=== PATIENT | female | born 1995 | race Caucasian/White ===

== ENCOUNTER 2017-03-31 05:49 | Emergency (ER) | payer BC ==
--- NOTE | 2017-03-31 19:08 | ER ---
ADMIT: 03/31/2017 RM/LOC: ER [facility] MR#: [id number] [id number] [place], [place] [id number] [address] [place], [place] [id number] Emergency Room Report SEX: F AGE: 21 : 1995 DATE: 03/31/2017 HISTORY OF PRESENT ILLNESS: The patient is a 21-year-old female, came to the ER with chief complaint of left posterior flank pain for the last 3 days, pain is sharp. The patient also complains of nausea and nonbloody, nonbilious vomiting multiple times because of the pain. The patient states she has a long history of kidney stone and multiple lithotripsy. PHYSICAL EXAMINATION: GENERAL: In the ER, the patient was in moderate to severe distress. VITAL SIGNS: Afebrile. HEAD and NECK: Noncontributory. CHEST: Clear bilaterally. HEART: Normal heart sounds. ABDOMEN: The patient had no CVA tenderness and no tenderness or rebound or guarding or rigidity of the abdomen. The patient had no McBurney tenderness too. The rest of the physical exam is noncontributory. EMERGENCY ROOM COURSE: The patient has sodium of 141, with potassium of 3.8, and creatinine of 1.1, WBC was 11. Pain was controlled. The patient received Zofran also for nausea and vomiting, and IV fluids. The patient states she feels way better. CT scan of the abdomen and pelvis was suggestive of multiple kidney stones, which were all small, less than 3 mm, in the parenchyma of bilateral kidneys, more on the left side and one 4 to 5 mm kidney stone on the UVJ, which is not obstructive per my reading, and also I did not see any hydronephrosis too. The patient is stable, pain is controlled, and the patient can be discharged to home with return precautions, prescription for [place]. The patient states that she previously took [place] for pain for kidney stone and she tolerates [place] very well. Follow up with the primary doctor as needed. Joe Salazar MD/ travon JOB #: [id number] CC: Joe Salazar MD, Attending Physician Randee Peters, Family Physician
== END 2017-03-31 07:45 | disposition home or self-care (01) ==
LOC: ER 05:49
DX: N13.2 Hydronephrosis with renal and ureteral calculous obstruction (principal)